=== PATIENT | male | born 2000 | race African-American/Black ===

== ENCOUNTER 2021-07-10 23:44 | Emergency (ER) | payer OTHER, MEDICAID, SELFPAY ==
[2021-07-10 23:52] VITALS: BP 141/90; PULSE 120; RESP 20; TEMP 37.5; O2SAT 95; BMI 24.3
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
[2021-07-11 00:53] LABS: MANUAL DIFF FLAG NO
[2021-07-11 00:55] LABS: Basophils Percent Auto 0.3 % (0-2); Eosinophils Percent Auto 0.1 % (0-4); Hemoglobin 14.3 g/dl (14.0-18.0); Imm Gran Abs Auto 0.02 X10*3/uL (0.00-0.03); Imm Gran Pct Auto 0.3 % (0.0-0.4); Lymphocytes Absolute Auto 2.1 X10*3/uL (1.2-4.9); Lymphocytes Percent Auto 26.6 % (20-40); Mean Corpuscular Hemoglobin 28.7 pg (27.0-33.0); Mean Corpuscular Volume 84.3 fL (80.0-98.0); Mean Platelet Volume 10.7 fL (9.4-12.4); Monocytes Absolute Auto 0.5 X10*3/uL (0.1-1.2); Neutrophils Absolute Auto 5.2 x10*3/uL (2.0-8.3); Neutrophils Percent Auto 66.7 % (45-73); Platelet Count 184 X10*3/uL (160-400); Red Blood Count 4.98 X10*6/uL (4.60-5.80); Red Cell Distribution Width 13.1 % (11.0-16.0); White Blood Count 7.8 X10*3/uL (4.8-10.8)
[2021-07-11 01:05] LABS: COVID-19 Test Negative (Negative)
[2021-07-11 01:14] LABS: Anion Gap 16 (12-20); Blood Urea Nitrogen 10 mg/dL (9-16); Calcium 10.3 mg/dL (8.4-10.2); Carbon Dioxide 24 mmol/L (22-29); Chloride 103 mmol/L (96-108); Creatinine Clr Calc Pharmacy 119.5; Estimated Glomerular Filt Rate > 60; Glucose Random 116 mg/dL (60-115); Potassium 4.3 mmol/L (3.3-5.1); Sodium 139 mmol/L (135-145)
[2021-07-11] MEDS: OLANZapine 10 MG TABLET PO ×2 (01:22→09:27)
[2021-07-11] MEDS: LORazepam 1 MG TABLET PO (01:22)
--- NOTE | 2021-07-11 06:35 | PC.NURSE ---
Patient was up until 0245 sleeping since, patient hyper-sexual, inappropriate sexual comments, disruptive behavior at time, Olanzapine 10 mg po and Ativan 1 mg po administered at 0119 with + effect, Leighann Felder sales development director called at [phone] for medication record, med rec updated, per group patient was extremely hyper-sexual most-likely due to poly-substance use, patient was hesitant to provide urine sample, urine pending at this time, [facility] referral completed/confirmed, pending ETA, VSS, will continue to monitor.
--- NOTE | 2021-07-11 08:35 | PC.NURSE ---
Pt has been sleeping since this RN arrival. Chest rise noted.
[2021-07-11] MEDS: Divalproex Sodium ER 500 MG TAB.ER.24H PO (09:28)
[2021-07-11 09:32] LABS: Appearance Urine CLEAR; Color Urine YELLOW; Glucose Urine UA NEG (NEG); Leukocyte Esterase Urine NEG (NEG); Nitrite Urine NEG (NEG); Specific Gravity - Urine 1.025 (1.005-1.025); Urine Blood NEG (NEG); Urine Ketones NEG (NEG); Urine Protein NEG (NEG-TRACE)
[2021-07-11 09:48] LABS: Amphetamine Screen Urine Not Detected (Not Detect); Barbiturates, Urine Not Detected (Not Detect); Benzodiazepines Screen Urine Not Detected (Not Detect); Cannabinoid Screen Urine POSITIVE (Not Detect); Cocaine Screen Urine Not Detected (Not Detect); Fentanyl, urine Not Detected (Not Detect); Opiate Screen Urine Not Detected (Not Detect); Phencyclidine Screen Urine Not Detected (Not Detect)
--- NOTE | 2021-07-11 10:11 | PC.NURSE ---
Has been evaluated by N. Pt continues to linger near nurses station. DOes not respond well to redirection.
--- NOTE | 2021-07-11 11:02 | MHC.CARE ---
Received call from Jose Pruitt, clinical programmer at [facility]. Asked about patient's behavior, tox screen and disposition, gave available information and advised that he was cleared by N to not need an inpatient admission. senior adults director stated that they have to make some arrangements before patient can safely return to the program so would like him referred to [facility]. [facility] will call N and speak to the evaluating clinician.
--- NOTE | 2021-07-11 11:22 | PC.NURSE ---
This RN calling Rocío Holt, CLinical Director at [facility]. Message left.
--- NOTE | 2021-07-11 13:23 | PC.NURSE ---
Marni from [facility] called. States that disposition will not change. Pt isn't appropriate for respite. This RN to call [facility] and arrange for transportation home. Message Left for Rocío Holt at [facility] [phone]
--- NOTE | 2021-07-11 13:41 | PC.NURSE ---
Rocío Holt states that plan from [facility] is that patient go to the Living Room directly from the ED. Living Room is expecting patient.
[2021-07-11 14:31] VITALS: BP 134/78; PULSE 106; RESP 16; TEMP 36.5; O2SAT 100
== END 2021-07-11 15:35 ==
PROVIDERS: Physician Assistant Medical; Emergency Provider Student in an Organized Health Care Education/Training Program
DX: R41.82 Altered mental status, unspecified (principal); F66 Other sexual disorders; R00.0 Tachycardia, unspecified; Z79.899 Other long term (current) drug therapy; Z20.822 Contact with and (suspected) exposure to COVID-19
CPT/HCPCS: 36415; 80048; 80307; 81003; 85025; 87635; 99284; 99285